=== PATIENT | female | born 1985 | race Caucasian/White ===

== ENCOUNTER 2018-01-27 04:16 | Inpatient (IN) | payer OTHER ==
[2018-01-27 05:02] VITALS: BMI 27.9
[2018-01-27] MEDS ORDERED: AMPicillin 2 GM in Sodium Chloride 0.9% 100 ML IVPB ONE (05:02)
[2018-01-27] MEDS ORDERED: AMPicillin 1 GM in Sodium Chloride 0.9% 100 ML IVPB SCH (05:15)
--- NOTE | 2018-01-27 05:22 | OBADHP ---
Datetime: 01/27/2018 05:14 Admit Comment, IP Provider: A: 32 yo at 40 wk by LMP FHT cat 1 Early active labor Coping with labor Low risk CNM client P: Admit to L_D- reviewed with pt option of DC home until more advanced dilation Ambulate, shower, tub as desires PO fluids and diet as tolerated Admission CBC and T_S Insert IV, Amp 2gm then Amp 1 gm Q4 hours thereafter for GBS prophylaxis Anticipate active labor and Yenny Mendoza Pelvic Type - PN: Adequate Extremities - PN: Normal Abdomen - PN: Normal Back - PN: Normal Breast - PN: Normal Lungs - PN: Normal Heart - PN: Normal Thyroid - PN: Normal Neurologic - PN: Normal HEENT - PN: Normal General - PN: Normal Weight - Estimated: 3500 Presentation-Admit: Vertex FHR - Baseline A Provider: 160 Membranes, Provider: Intact Contraction Comments Provider: 3-4 in 10 IP Hx Assessment: The History has been Reviewed and is Current Vital Signs Provider: Reviewed IP Chief Complaint: Uterine contractions NICHD Variability Prov Fetus A: Moderate 6-25bpm NICHD Accel Fetus A IP Provider: 15X15 FHR Category Provider Fetus A: Category I NICHD Decel Fetus A IP Provider: None Dilatation, Provider: 4 Effacement, Provider: 100 Station, Provider: -1 Genitourinary Exam: Normal DTRs - PN: Normal EGA AdmitDate IP: 40.0 IP Adm Impression: Term, intrauterine ; Intact Membranes IP Admit Plan: Admit to unit; Initiate labor protocol Datetime: 01/24/2018 11:22 Pool Provider: Negative
[2018-01-27 06:02] LABS: BASO # 0.1 K/uL (0.0-0.2); BASO % 0.5 % (0.0-2.0); EOS % 0.4 % (0.0-4.0); HEMOGLOBIN 10.9 g/dL (12.0-16.0); LYMPH # 1.3 K/uL (1.0-4.3); LYMPH % 10.1 % (20.0-40.0); MEAN CELL VOLUME 88.4 fl (81.0-99.0); MEAN CORPUSCULAR HEMOGLOBIN 29.3 pg (27.0-31.0); MEAN CORPUSCULAR HGB CONC 33.2 g/dL (33.0-37.0); MEAN PLATELET VOLUME 10.5 fl (7.2-11.7); MONO # 0.8 K/uL (0.0-0.8); MONO % 6.3 % (0.0-10.0); NEUT # 10.9 K/uL (1.8-7.0); NEUT % 82.7 % (50.0-75.0); NRBC % 0.1 % (0.0-0.0); RBC 3.71 Mil/uL (3.80-5.20); RED CELL DISTRIBUTION WIDTH 14.2 % (11.5-14.5); WHITE BLOOD COUNT 13.1 K/uL (4.8-10.8)
--- NOTE | 2018-01-27 06:21 | OBPN ---
Datetime: 01/27/2018 06:00 FHR - Baseline A Provider: 160 IP Fetus A Comments: By doppler Datetime: 01/27/2018 05:14 Membranes, Provider: Intact Contraction Comments Provider: 3-4 in 10 Weight - Estimated: 3500 Presentation-Admit: Vertex Vital Signs Provider: Reviewed NICHD Accel Fetus A IP Provider: [id number] FHR Category Provider Fetus A: Category I NICHD Variability Prov Fetus A: Moderate 6-25bpm Dilatation, Provider: 4 Effacement, Provider: 100 Station, Provider: -1 NICHD Decel Fetus A IP Provider: None Datetime: 01/24/2018 11:22 Pool Provider: Negative
[2018-01-27] MEDS ORDERED: Oxytocin 30 UNIT 30 UNITS/500 ML BAG IV ONE ×2 (07:17→16:57)
--- NOTE | 2018-01-27 07:18 | OBPN ---
Datetime: 01/27/2018 07:13 IP Progress Impression: Arrest of dilatation/descent IP Procedures: Sterile Vag Exam IP Progress Plan: Augmentation Membranes, Provider: Intact Contraction Comments Provider: 07/15 FHR - Baseline A Provider: 152 by doppler IP Progress Note Comment: Reviewed with pt no change in cervical dilation after shower and nitrous u se. Pt agrees to start pitocin. Plan to use tele monitor and have pt use tub as well. NICHD Accel Fetus A IP Provider: 1 Dilatation, Provider: 4 Effacement, Provider: 100 Station, Provider: -3
--- NOTE | 2018-01-27 07:36 | OBPN ---
Datetime: 01/27/2018 07:33 IP Progress Note Comment: Spoke with Dr. De Santiago about starting pitocin infusion to augment labor. Reviewed that pt will maintain cEFM. Pt may use tub.
[2018-01-27] MEDS: Lactated Ringer's 1,000 ML IV SCH ×2 (08:00→12:40)
[2018-01-27] MEDS ORDERED: VALACYCLOVIR HCL 1000 MG PO SCH (09:00)
--- NOTE | 2018-01-27 09:21 | OBPN ---
Datetime: 01/27/2018 09:14 IP Progress Impression Other: hypotonic contractions, maternal fatigue IP Progress Impression: Arrest of dilatation/descent IP Progress Plan: Augmentation Membranes, Provider: Intact Contraction Comments Provider: q3-4" FHR - Baseline A Provider: 156 IP Progress Note Comment: just starting Pitocin now. patient in tub, tolerating contractions well. Dr. Rand aware of patient status. Vital Signs Provider: Reviewed NICHD Accel Fetus A IP Provider: 15X15 FHR Category Provider Fetus A: Category I NICHD Variability Prov Fetus A: Moderate 6-25bpm Dilatation, Provider: 4 Effacement, Provider: 100 Station, Provider: -2 NICHD Decel Fetus A IP Provider: None
--- NOTE | 2018-01-27 09:39 | OBPN ---
Datetime: 01/27/2018 08:15 IP Progress Note Comment: Received report from Bernardino Mendoza CNM. patient's history reviewed-overall p atient and fetus doing well. noted +HSV, prolonged latent phase and maternal fatigue. planning to st art Pitocin augmentation as soon as available.
[2018-01-27] MEDS ORDERED: Lactated Ringer's 1,000 ML IV ONE (10:00)
--- NOTE | 2018-01-27 10:28 | OBPN ---
Datetime: 01/27/2018 10:23 IP Progress Plan Other: continue Augmentation IP Progress Impression: Normal progression of labor Contraction Comments Provider: q3-4 lasting 50 secondly. tolerating very well. FHR - Baseline A Provider: 155 IP Progress Note Comment: tolerating contractions-using tub, heel padder and nitrous with good effect. fe eling pressure with contractions. FHR Category Provider Fetus A: Category I NICHD Variability Prov Fetus A: Moderate 6-25bpm Dilatation, Provider: 9 Effacement, Provider: 100 Station, Provider: -1 NICHD Decel Fetus A IP Provider: None
--- NOTE | 2018-01-27 10:30 | OBPN ---
Datetime: 01/27/2018 08:00 Dilatation, Provider: 4 Effacement, Provider: 100 Station, Provider: -3
[2018-01-27] MEDS ORDERED: Fentanyl/Bupivacaine HCl 250 ML EPI ONE (14:05)
[2018-01-27] MEDS ORDERED: ePHEDrine 50 mg/ml Inj ONE (14:17)
[2018-01-27] MEDS ORDERED: OXYTOCIN/0.9 % NS 20 UNIT/1,000 ML BAG IV ONE (14:21)
[2018-01-27] MEDS ORDERED: Bupivacaine HCl 0.5% PF (30 ml) Inj ONE ×2 (14:21→15:52)
--- NOTE | 2018-01-27 14:34 | OBPN ---
Datetime: 01/27/2018 11:40 IP Progress Impression: Normal progression of labor; Reassuring heart rate IP Procedures: Artificial ROM; Sterile Vag Exam IP Progress Plan: Continue present management Membranes, Provider: Bulging Amniotic Fluid Color, Provider: Clear Contraction Comments Provider: q2-3 30-40" FHR - Baseline A Provider: 150's IP Progress Note Comment: out of tub for exam. Pitocin stopped, contractions very frequent. plan fo r patient to sit on the toilet for a while. Vital Signs Provider: Reviewed Dilatation, Provider: 10 Effacement, Provider: 100 Station, Provider: -1
--- NOTE | 2018-01-27 14:36 | OBPN ---
Datetime: 01/27/2018 12:15 IP Progress Note Comment: out of bed to toilet. fht's now by intermittent auscultation 146
--- NOTE | 2018-01-27 14:41 | OBPN ---
Datetime: 01/27/2018 12:45 IP Progress Note Comment: return to bed. Kneeling against back of bed. very tired Vital Signs Provider: Reviewed
--- NOTE | 2018-01-27 14:48 | OBPN ---
Datetime: 01/27/2018 13:45 Vital Signs Provider: Within Normal Limits Datetime: 01/27/2018 13:15 IP Progress Impression Other: maternal exhaustion IP Progress Impression: Arrest of dilatation/descent Membranes, Provider: Ruptured Contraction Comments Provider: q4-5, mild to palpation IP Fetus A Comments: heart by doppler 150 IP Progress Note Comment: discussed with patient 2 possible plans for arrest of labor progress. one , to start Pitocinand push or two get epidural then start Pitocin, push after laboring down. patient deciding. Dilatation, Provider: 10 Effacement, Provider: 100 Station, Provider: -1
--- NOTE | 2018-01-27 14:50 | OBPN ---
Datetime: 01/27/2018 14:20 IP Progress Plan: Anticipate Vaginal Delivery FHR - Baseline A Provider: 154 SYDNEE Variability Prov Fetus A: Moderate 6-25bpm Dilatation, Provider: 10 Station, Provider: 1 Datetime: 01/27/2018 13:45 IP Progress Note Comment: after consultation with anesthesia, patient decided to have epidural.
--- NOTE | 2018-01-27 14:52 | OBPN ---
Datetime: 01/27/2018 14:50 IP Progress Plan Other: re-start Pitocin. IP Progress Plan: Augmentation Vital Signs Provider: Within Normal Limits
--- NOTE | 2018-01-27 14:55 | OBPN ---
Datetime: 01/27/2018 14:50 IP Progress Note Comment: patient feels a lot of rectal pressure with contraactions. restart Pitoci n to make contractions more effective, frequent. Dr. Rand aware of patient progress. anticipate
--- NOTE | 2018-01-27 16:42 | OBDS ---
DELIVERY PERSONNEL Nurse Associate Professor Of Geography Certified: Sunny Bazan CNM Bioinformatics Scientist: Johanna Delgadillo RN MATERNAL INFORMATION Provider Comments: progressed after epidural to fully and +1 station. allowed to labor down for one hour. patient pushed effectively to of viable female infant over intact perineum. baby with sp ontaneous cry good tone pink. apgars 9 and 9. placenta delivered spontaneously and intact. ebl 300 cc. bilateral periurethral lacerations and vaginal laceration repaired under local anesthesia with 3-0 vicryl rapide suture. baby to parents to [facility]ham. LABOR SUMMARY EDC: 01/27/2018 00:00 No. Babies in Womb: 1 LABOR INFORMATION Group B Beta Strep: Positive MEMBRANES Membranes Rupture Method: Artificial Amniotic Fluid Color: Clear Amniotic Fluid Amount: Small VAGINAL DELIVERY Episiotomy: None Laceration Type: Vaginal; Periurethral Laceration Repair: Yes Laceration Repair Note: 3 stitches with 3-0 Vicryl Rapide under local anesthesia Sponge Count Correct: Yes Sharps Count Correct: Yes
[2018-01-27] MEDS ORDERED: Benzocaine/Menthol SPRAY TOP PRN (16:57)
[2018-01-27] MEDS: Benzocaine/Menthol SPRAY TOP PRN (22:14)
[2018-01-28 07:55] LABS: BASO % 0.2 % (0.0-2.0); EOS # 0.1 K/uL (0.0-0.7); EOS % 0.3 % (0.0-4.0); HEMOGLOBIN 10.1 g/dL (12.0-16.0); LYMPH % 12.4 % (20.0-40.0); MEAN CELL VOLUME 89.1 fl (81.0-99.0); MEAN CORPUSCULAR HEMOGLOBIN 29.6 pg (27.0-31.0); MEAN CORPUSCULAR HGB CONC 33.2 g/dL (33.0-37.0); MEAN PLATELET VOLUME 10.5 fl (7.2-11.7); MONO # 1.2 K/uL (0.0-0.8); MONO % 7.4 % (0.0-10.0); NEUT # 13.1 K/uL (1.8-7.0); NEUT % 79.7 % (50.0-75.0); RBC 3.4 Mil/uL (3.80-5.20); RED CELL DISTRIBUTION WIDTH 14.8 % (11.5-14.5); WHITE BLOOD COUNT 16.5 K/uL (4.8-10.8)
--- NOTE | 2018-01-28 15:46 | OBPPN ---
Datetime: 01/28/2018 15:42 PP Pain Prov: Within normal limits PP Nausea Prov: Denies PP Flatus Prov: Yes PP BM Prov: No PP Breasts Prov: Normal PP Heart Prov: Not Done PP Lungs Prov: Not Done PP Abdomen/Uterus Prov: Normal PP Lochia Prov: Normal PP Vulva/Perineum Prov: Normal PP CVA Tenderness Prov: Not Done PP Extremities Prov: Abnormal PP C/S Incision Prov: Not Applicable PP Progress Prov: Normal PP Comments Phys Exam Prov: Pedal edema +1 PP Impression Prov: Normal progression PP Plan Prov: Continue present management IP PP Procedures: None Vital Signs Provider PP: Reviewed
--- NOTE | 2018-01-28 15:48 | OBDCSUM ---
Datetime: 01/24/2018 12:49 Follow up at, Provider: JIMI Disch Instr Activity: Normal activity Discharge Instructions, Provider: Routine instructions given Discharge Diagnosis, Provider: Term Delivered Discharge Time: 01/29/2018 08:00 Follow up in weeks, Provider: JIMI Contraception discussed, Prov: No Discharge Comment, Provider: Call with any new or worsening symptoms, increased bleeding, or lactati on issues.Continues high iron diet with lots of water. Follow up in office in 7-10 days
[2018-01-29] MEDS: Benzocaine/Menthol SPRAY TOP PRN (09:33)
[2018-01-29 22:10] VITALS: BP 135/80; PULSE 69; RESP 18; TEMP 98; O2SAT 99
== END 2018-01-29 14:30 | disposition home or self-care (01) | DRG 775 ==
LOC: H.EROB2 04:16 → H.L&D 05:02 → H.OB/GYN 19:00
PROVIDERS: ADMIT Nurse Practitioner Women's Health; ATTEND Nurse Practitioner Women's Health
PROC: 10E0XZZ Delivery of Products of Conception, External Approach (ICD-10-PCS; principal; 2018-01-27)
PROC: 0UQGXZZ Repair Vagina, External Approach (ICD-10-PCS; 2018-01-27)
PROC: 10907ZC Drainage of Amniotic Fluid, Therapeutic from Products of Conception, Via Natural or Artificial Opening (ICD-10-PCS; 2018-01-27)
PROC: 4A1HXCZ Monitoring of Products of Conception, Cardiac Rate, External Approach (ICD-10-PCS; 2018-01-27)
DX: O48.0 Post-term pregnancy (principal); O71.4 Obstetric high vaginal laceration alone; O62.0 Primary inadequate contractions; O71.82 Other specified trauma to perineum and vulva; O99.820 Streptococcus B carrier state complicating pregnancy; Z3A.40 40 weeks gestation of pregnancy; Z37.0 Single live birth